=== PATIENT | male | born 1970 | race Caucasian/White ===

== ENCOUNTER → 2020-02-11 | Outpatient (CLI) | payer OTHER ==
[~2020-02-11] MED LIST: ACETAMINOPHEN325 M1 PO; ASPIRIN325 PO; COZAAR 50 MG TA50 M2 PO; EFFIENT10 MG PO; IBUPROFEN 200200 M1 PO; LIPITOR40 MG PO; LIPITOR80 MG PO; NITROSTAT0.4 MG SL; NOHOMEMEDICATIONS; TOPROL XL50 MG PO
== END ==
LOC: SJCVCIMAG 13:45
DX: I11.9 Hypertensive heart disease without heart failure (principal); I25.10 Atherosclerotic heart disease of native coronary artery without angina pectoris; E78.5 Hyperlipidemia, unspecified; Z95.5 Presence of coronary angioplasty implant and graft